=== PATIENT | male | born 1995 | race African-American/Black ===

== ENCOUNTER 2019-01-14 18:52 | Emergency (ER) | payer SELFPAY ==
[2019-01-14] MEDS ORDERED: metroNIDAZOLE 250 MG Tab PO ONE (19:17)
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
[2019-01-14] MEDS ORDERED: cefTRIAXone 250 MG in Lidocaine 1% 1 ML IM ONE (19:18)
[2019-01-14] MEDS ORDERED: Azithromycin 250 MG Tab PO ONE (19:21)
== END 2019-01-14 19:47 | disposition home or self-care (01) ==
LOC: MW.ED 18:52
DX: N34.2 Other urethritis (principal)
CPT/HCPCS: 81003; 87491; 87591; 96372; 99283; A9270; J0696; J2001

== ENCOUNTER 2019-02-01 08:50 | Emergency (ER) | payer SELFPAY ==
[2019-02-01] MEDS ORDERED: cefTRIAXone 250 MG in Lidocaine 1% 1 ML IM ONE (09:03)
[2019-02-01] MEDS ORDERED: Azithromycin 250 MG Tab PO ONE (09:04)
--- NOTE | 2019-02-01 09:07 | EDM.PDOC ---
ED HPI GENERAL MEDICAL PROBLEM - General Chief Complaint: Genitourinary Problem Stated Complaint: WANTS TO BE CHECKED FOR A DISEASE Time Seen by Provider: 02/01/19 09:00 - History of Present Illness INITIAL COMMENTS - FREE TEXT/NARRATIVE: HISTORY AND PHYSICAL: History of present illness: Patient 23-year-old black male who presents with a concern of discomfort with urination he's concern of STD. He has no penile lesions or other complaints. Review of systems: As per history of present illness and below otherwise all systems reviewed and negative. Past medical history: As per history of present illness and as reviewed below otherwise noncontributory. Surgical history: As per history of present illness and as reviewed below otherwise noncontributory. Social history: No reported history of drug or alcohol abuse. Family history: As per history of present illness and as reviewed below otherwise noncontributory. Physical exam: HEENT: Atraumatic, normocephalic, pupils reactive, negative for conjunctival pallor or scleral icterus, mucous membranes moist, throat clear, neck supple, nontender, trachea midline. Lungs: Clear to auscultation, breath sounds equal bilaterally, chest nontender. Heart: S1S2, regular, negative for clicks, rubs, or JVD. Abdomen: Soft, nondistended, nontender. Negative for masses or hepatosplenomegaly. Negative for costovertebral tenderness. Pelvis: Stable nontender. Genitourinary: Deferred. Rectal: Deferred. Extremities: Atraumatic, negative for cords or calf pain. Neurovascular unremarkable. Neuro: Awake, alert, oriented. Cranial nerves II through XII unremarkable. Cerebellum unremarkable. Motor and sensory unremarkable throughout. Exam nonfocal. Diagnostics: UA urine for GC chlamydia Therapeutics: Rocephin 250 mg IM and azithromycin 1 g by mouth Impression: #1 urethritis Definitive disposition and diagnosis as appropriate pending reevaluation and review of above. - Related Data Allergies Allergy/AdvReac Type Severity Reaction Status Date / Time No Known Allergies Allergy Verified 01/14/19 19:08 Home Meds: Home Meds . [No Known Home Meds] 01/14/19 [History] Past Medical History HEENT History: Reports: None Cardiovascular History: Reports: None Respiratory History: Reports: None Gastrointestinal History: Reports: None Genitourinary History: Reports: None Neurological History: Reports: None Psychiatric History: Reports: None Endocrine/Metabolic History: Reports: None Hematologic History: Reports: None Immunologic History: Reports: None Oncologic (Cancer) History: Reports: None Dermatologic History: Reports: None - Infectious Disease History Infectious Disease History: Reports: None - Past Surgical History Head Surgeries/Procedures: Reports: None Male Surgical History: Reports: None Musculoskeletal Surgical History: Reports: Shoulder Surgery Social & Family History - Family History Family Medical History: Noncontributory - Tobacco Use Smoking Status *Q: Never Smoker Second Hand Smoke Exposure: No - Caffeine Use Caffeine Use: Reports: None - Recreational Drug Use Recreational Drug Use: No ED ROS GENERAL - Review of Systems Review Of Systems: ROS reveals no pertinent complaints other than HPI. ED EXAM, GENERAL - Physical Exam Exam: See Below (dictation) Course - Vital Signs Last Recorded V/S: Last Vital Signs Temp 36.2 C 02/01/19 08:56 Pulse 70 02/01/19 08:56 Resp 18 02/01/19 08:56 BP 148/78 H 02/01/19 08:56 Pulse Ox 96 02/01/19 08:56 - Orders/Labs/Meds Orders: Active Orders 24 hr Category Date Time Status CHLAMYDIA AND GONORRHEA BY TMA Stat Lab 02/01/19 09:03 Ordered UA RFX ESTRELLITA AND CULT IF INDIC [URIN] Stat Lab 02/01/19 09:03 Ordered Azithromycin [Zithromax] Med 02/01/19 09:04 Once 1,000 mg PO Q24H ONE cefTRIAXone [Rocephin] 250 mg Med 02/01/19 09:03 Ordered Lidocaine 1% [Xylocaine-MPF 1%] 1 ml IM ONETIME Medication Orders Azithromycin (Zithromax) 1,000 mg PO Q24H ONE Stop: 02/01/19 09:05 Ceftriaxone Sodium 250 mg/ (Lidocaine HCl) 1 mls @ 1 mls/sec IM ONETIME ONE Stop: 02/01/19 09:04 Meds: Medications Generic Name Dose Route Start Last Admin Trade Name Freq PRN Reason Stop Dose Admin Azithromycin 1,000 mg 02/01/19 09:04 Zithromax PO 02/01/19 09:05 Q24H ONE Ceftriaxone Sodium 250 mg/ 1 mls @ 1 mls/sec 02/01/19 09:03 Lidocaine HCl IM 02/01/19 09:04 ONETIME ONE Departure - Departure Time of Disposition: 09:05 Disposition: Home, Self-Care 01 Condition: Good Clinical Impression: Ureteritis - Discharge Information Referrals: PCP,None [Primary Care Provider] - Additional Instructions: The following information is given to patients seen in the emergency department who are being discharged to home. This information is to outline your options for follow-up care. We provide all patients seen in our emergency department with a follow-up referral. The need for follow-up, as well as the timing and circumstances, are variable depending upon the specifics of your emergency department visit. If you don't have a primary care physician on staff, we will provide you with a referral. We always advise you to contact your personal physician following an emergency department visit to inform them of the circumstance of the visit and for follow-up with them and/or the need for any referrals to a consulting specialist. The emergency department will also refer you to a specialist when appropriate. This referral assures that you have the opportunity for followup care with a specialist. All of these measure are taken in an effort to provide you with optimal care, which includes your followup. Under all circumstances we always encourage you to contact your private physician who remains a resource for coordinating your care. When calling for followup care, please make the office aware that this follow-up is from your recent emergency room visit. If for any reason you are refused follow-up, please contact the [facility] emergency department at and asked to speak to the emergency department charge nurse. [facility] - Urology [address] [place] [phone] Contact precautions as discussed related to intermittent relations all partners to evaluate inject return as needed as discussed follow-up urology as needed as discussed - My Orders Last 24 Hours: My Active Orders 02/01/19 09:03 CHLAMYDIA AND GONORRHEA BY TMA Stat UA RFX ESTRELLITA AND CULT IF INDIC [URIN] Stat cefTRIAXone [Rocephin] 250 mg Lidocaine 1% [Xylocaine-MPF 1%] 1 ml IM ONETIME 02/01/19 09:04 Azithromycin [Zithromax] 1,000 mg PO Q24H ONE - Assessment/Plan Last 24 Hours: My Active Orders 02/01/19 09:03 CHLAMYDIA AND GONORRHEA BY TMA Stat UA RFX ESTRELLITA AND CULT IF INDIC [URIN] Stat cefTRIAXone [Rocephin] 250 mg Lidocaine 1% [Xylocaine-MPF 1%] 1 ml IM ONETIME 02/01/19 09:04 Azithromycin [Zithromax] 1,000 mg PO Q24H ONE
== END 2019-02-01 09:35 | disposition home or self-care (01) ==
LOC: MW.ED 08:50
DX: N34.2 Other urethritis (principal)
CPT/HCPCS: 81003; 87491; 87591; 96372; 99284; A9270; J0696; J2001; 99283